=== PATIENT | female | born 1995 | race African-American/Black ===

== ENCOUNTER 2018-04-08 17:21 | Emergency (ER) | payer MEDICARE ==
[~2018-04-08] VITALS: Ht 172.7 cm; Wt 61.7 kg
--- NOTE | 2018-04-08 17:33 | NUR ---
PT AMBULATED TO ER BED 01
[2018-04-08 17:35] VITALS: BP 135/77
--- NOTE | 2018-04-08 17:38 | NUR ---
URINE CUP HANDED TO PT FOR SAMPLE
--- NOTE | 2018-04-08 17:42 | NUR ---
22/ F BIB SELF. C/O OF HEAVY VAGINAL BLEEDING AND WEAKNESS. STATES BLEEDING FOR 1 WEEK, USING 10+ [facility] [place]. PAIN IS A SORE FEELING, INTERMITTENT, WORSENS WITH ACTIVITY. DENIES FEVER, N/V/D, FOUL ODER, DISCHARGE. CAME FROM AN URGENT CARE AND WAS TOLD IRON WAS LOW. HX--ANEMIA WITH BLOOD TRANSFUSION RX---NONE
[2018-04-08 18:09] LABS: BASOPHILS # (AUTO) 0.1 K/uL (0.00-0.22); BASOPHILS % (AUTO) 0.9 % (0.0-2.0); EOSINOPHILS # (AUTO) 0.1 K/uL (0-0.4); EOSINOPHILS % (AUTO) 0.7 % (0.0-4.0); HEMATOCRIT 29.7 % (36-48); HEMOGLOBIN 9.2 g/dL (12.0-16.0); LYMPHOCYTES # (AUTO) 1.4 K/uL (2.5-16.5); LYMPHOCYTES % (AUTO) 17.1 % (20.5-51.1); MEAN CORPUSCULAR HEMOGLOBIN 22 pg (27-31); MEAN CORPUSCULAR HGB CONC 31 g/dL (33-37); MONOCYTES # (AUTO) 0.6 K/uL (0.8-1.0); MONOCYTES % (AUTO) 6.9 % (1.7-9.3); NEUTROPHILS % (AUTO) 74.4 % (42.2-75.2); PLATELET COUNT (AUTO) 318 K/uL (140-450); RED BLOOD CELL COUNT(AUTO) 4.12 MIL/uL (4.20-5.40); RED CELL DISTRIBUTION WIDTH 19.3 % (11.6-13.7); WHITE BLOOD COUNT (AUTO) 8.1 K/uL (4.8-10.8)
[2018-04-08 18:30] LABS: ANION GAP 11.8 (8-16); CARBON DIOXIDE 28.1 mmol/L (21-32); CREATININE 0.7 mg/dL (0.6-1.3); POTASSIUM 3.9 mmol/L (3.5-5.1)
--- NOTE | 2018-04-08 18:43 | NUR ---
Patient being evaluated by DR CISSE at bedside.
[2018-04-08 19:02] VITALS: BP 124/76
--- NOTE | 2018-04-08 19:02 | NUR ---
Patient discharged with v/s stable. Written and verbal after care instructions given and explained. Patient alert, oriented and verbalized understanding of instructions. Ambulatory with steady gait. All questions addressed prior to discharge. ID band removed. Patient advised to follow up with PMD. Rx of MOTRIN, PROVERA& NORCO given. Patient educated on indication of medication including possible reaction and side effects. Opportunity to ask questions provided and answered.
== END 2018-04-08 19:02 | disposition home or self-care (01) ==
LOC: MED 17:21
DX: N93.8 Other specified abnormal uterine and vaginal bleeding (principal); R11.0 Nausea; R42 Dizziness and giddiness
CPT/HCPCS: 36415; 80048; 81002; 81025; 85025; 99283